=== PATIENT | male | born 1975 | race Caucasian/White ===

== ENCOUNTER 2016-11-02 19:29 | Emergency (ER) | payer MEDICAID ==
[~2016-11-02] VITALS: Ht 172.7 cm; Wt 65.8 kg
[2016-11-02] MEDS ORDERED: HYDROCODONE/APAP 10/325MG 1 EA TABLET ONE (20:41)
[2016-11-02] MEDS ORDERED: HYDROCODONE/APAP 5/325MG 1 EACH TABLET PO ONE (21:00)
[2016-11-02] MEDS ORDERED: LIDOCAINE 1%-EPI 1:100,000 50 ML VIAL IJ ONE (21:00)
[2016-11-02] MEDS ORDERED: SULFAMETH/TRIMETH 800/160 MG 1 UDTAB TABLET PO ONE ×2 (21:28→21:30)
[2016-11-02 21:35] VITALS: BP 115/78
== END 2016-11-02 21:36 | disposition home or self-care (01) ==
LOC: ER 19:29
DX: L02.31 Cutaneous abscess of buttock (principal)
CPT/HCPCS: 10060; 99283; A4606; A6402; A6407; J3490; Z7610

== ENCOUNTER 2016-11-04 08:18 | Emergency (ER) | payer SELFPAY ==
[~2016-11-04] VITALS: Ht 172.7 cm; Wt 63.5 kg
[2016-11-04 08:29] VITALS: BP 116/68
== END 2016-11-04 08:42 | disposition home or self-care (01) ==
LOC: ER 08:20
DX: L02.31 Cutaneous abscess of buttock (principal)
CPT/HCPCS: 99281; A4606; Z7610; Z7502

== ENCOUNTER 2018-04-26 14:24 | Emergency (ER) | payer MEDICAID ==
[~2018-04-26] VITALS: Ht 172.7 cm; Wt 63.5 kg
--- NOTE | 2018-04-26 14:50 | NUR ---
RT KNEE ABSCESS. PT SEEN & EVAL'D BY LEROY PUENTES. PT AAOX3, VSS, NAD NOTED @ THIS TIME.
[2018-04-26] MEDS ORDERED: CEPHALEXIN MONOHYDRATE 500 MG CAPSULE PO ONE ×2 (15:00→15:46)
[2018-04-26] MEDS ORDERED: SULFAMETH/TRIMETH 800/160 MG 1 UDTAB TABLET PO ONE ×2 (15:00→15:47)
[2018-04-26] MEDS ORDERED: HYDROCODONE/APAP 5/325MG 1 EACH TABLET PO ONE (15:00)
[2018-04-26] MEDS ORDERED: HYDROCODONE/APAP 5/325MG 1 EACH TABLET ONE (15:46)
[2018-04-26 16:21] VITALS: BP 128/68
--- NOTE | 2018-04-26 16:21 | NUR ---
Patient discharged to home in stable condition. Written and verbal after care instructions given. Patient verbalizes understanding of instruction.
== END 2018-04-26 16:22 | disposition home or self-care (01) ==
LOC: ER 14:30
DX: L02.415 Cutaneous abscess of right lower limb (principal)
CPT/HCPCS: 99284; A4606; A6402; A6403; Z7610

== ENCOUNTER 2019-09-07 19:13 | Emergency (ER) | payer MEDICAID, OTHER ==
[~2019-09-07] VITALS: Ht 172.7 cm; Wt 72.6 kg
[2019-09-07 19:27] VITALS: BP 134/93
== END 2019-09-07 20:06 | disposition home or self-care (01) ==
LOC: ER 19:18
DX: L02.414 Cutaneous abscess of left upper limb (principal); R21 Rash and other nonspecific skin eruption

== ENCOUNTER 2023-12-11 13:30 | Emergency (ER) | payer MEDICAID, OTHER ==
[~2023-12-11] VITALS: Ht 172.7 cm; Wt 66.2 kg
[2023-12-11 14:48] LABS: BASOPHILS % (AUTO) 0.3 % (0.0-2.0); EOSINOPHILS % (AUTO) 0.4 % (0.0-6.0); HEMATOCRIT 39 % (39-51); HEMOGLOBIN 12.1 g/dL (13.5-17.5); LYMPHOCYTES # (AUTO) 2.1 K/uL (0.8-4.8); LYMPHOCYTES % (AUTO) 18.6 % (20.0-44.0); MEAN CORPUSCULAR HEMOGLOBIN 23 PG (26.0-33.0); MEAN CORPUSCULAR HGB CONC 31 g/dl (31.0-36.0); MEAN CORPUSCULAR VOLUME 75 fL (80-96); MONOCYTES # (AUTO) 0.8 K/uL (0.1-1.30); MONOCYTES % (AUTO) 6.9 % (2.0-12.0); NEUTROPHILS # (AUTO) 8.3 K/uL (1.8-8.9); NEUTROPHILS % (AUTO) 73.8 % (43.0-81.0); PLATELET COUNT (AUTO) 594 K/uL (150-450); RED BLOOD CELL COUNT(AUTO) 5.17 MIL/uL (4.5-6.0); RED CELL DISTRIBUTION WIDTH 17.5 % (11.5-15.0); WHITE BLOOD COUNT (AUTO) 11.3 K/uL (4.3-11.0)
[2023-12-11] MEDS ORDERED: MORPHINE SULFATE INJ 4 MG/ML DISP.SYRIN ONE (14:49)
[2023-12-11] MEDS: MORPHINE SULFATE INJ 2 MG/ML DISP.SYRIN IV ONE (14:50)
[2023-12-11 15:40] LABS: ALBUMIN 2.7 g/dL (3.4-5.0); BILIRUBIN,DIRECT 0.1 mg/dL (0.0-0.2); BILIRUBIN,TOTAL 0.3 mg/dL (0.2-1.0); CALCIUM, SERUM 9.1 mg/dL (8.5-10.1); CREATININE 1.2 mg/dL (0.6-1.3); POTASSIUM 4.5 mmol/L (3.5-5.1); TOTAL PROTEIN, SERUM 8.6 g/dL (6.4-8.2)
[2023-12-11] MEDS ORDERED: IV NS 0.9% 250 ML IV ONE (15:53)
[2023-12-11] MEDS ORDERED: CT SWABBABLE VALVE TRANS SET 1 EA INFUS.SET MC ONE (15:53)
[2023-12-11] MEDS ORDERED: IOHEXOL-300 100 ML VIAL IV ONE (15:53)
[2023-12-11 16:50] LABS: ANISOCYTOSIS 1+; LYMPHOCYTES % (MANUAL) 18 % (16-48); MONOCYTES % (MANUAL) 6 % (0-11.0); NEUTROPHILS % (MANUAL) 76 (42-76); PLATELET ESTIMATE INCRE
[2023-12-11 16:51] LABS: OVALOCYTES RARE
[2023-12-11] MEDS ORDERED: ABAC1TAB15 PO (17:20)
[2023-12-11] MEDS ORDERED: KETO10TA2 PO (17:35)
[2023-12-11] MEDS ORDERED: POLY17PO4 PO (17:35)
[2023-12-11] MEDS ORDERED: HYDR-4209 PO (17:35)
[2023-12-11 17:46] VITALS: BP 110/67; TEMP 97.9; O2SAT 99
== END 2023-12-11 17:46 | disposition home or self-care (01) ==
LOC: ER 13:37
DX: K92.1 Melena (principal); K62.89 Other specified diseases of anus and rectum; R22.9 Localized swelling, mass and lump, unspecified
CPT/HCPCS: 99285; 74177; 96374; 85025; 80048; 80076; 36415; 85007; J2270; J7050; Q9967